=== PATIENT | male | born 1980 | race Two or more races ===

== ENCOUNTER 2020-10-05 | Outpatient (REF) | payer OTHER, SELFPAY | END 2020-10-05 00:01 | disposition home or self-care (01) | LOC: HO.LNP | PROVIDERS: Visit Provider Physician Assistant | DX: Z13.89 Encounter for screening for other disorder (principal) ==

== ENCOUNTER 2020-10-06 | Outpatient (REF) | payer OTHER, SELFPAY ==
[2020-10-07 09:57] LABS: C. trachomatis RNA TMA NOT DETECTED (NOT DETECTED); N. gonorrhoeae RNA TMA NOT DETECTED (NOT DETECTED)
== END 2020-10-06 00:01 | disposition home or self-care (01) ==
LOC: HO.LNP
PROVIDERS: Visit Provider Physician Assistant
DX: A59.9 Trichomoniasis, unspecified (principal); Z11.8 Encounter for screening for other infectious and parasitic diseases; Z11.3 Encounter for screening for infections with a predominantly sexual mode of transmission
CPT/HCPCS: 87491; 87591

== ENCOUNTER 2021-02-03 14:43 | Outpatient (REF) | payer OTHER, SELFPAY ==
[2021-02-03 16:50] LABS: Alanine Aminotransferase 31 U/L (0-40); Albumin Level 4.8 g/dL (3.5-5.0); Alkaline Phosphatase 77 U/L (39-117); Anion Gap 14 (12-20); Aspartate Amino Transferase 31 U/L (5-37); Bilirubin Total 0.6 mg/dL (0.0-1.0); Blood Urea Nitrogen 14 mg/dL (9-16); Carbon Dioxide 26 mmol/L (22-29); Chloride 105 mmol/L (96-108); Cholesterol 238 mg/dL; Estimated Glomerular Filt Rate > 60; Glucose Fasting 81 mg/dL (60-99); HDL Cholesterol 46 mg/dL; LDL Cholesterol Calculated 144 mg/dl; Potassium 4.3 mmol/L (3.3-5.1); Sodium 141 mmol/L (135-145); Total Protein 8.7 g/dL (6.5-8.0); Triglycerides 242 mg/dL
[2021-02-03 17:10] LABS: TSH reflex Free T4 0.95 uIU/mL (0.32-4.0)
[2021-02-04 06:42] LABS: CT PCR NOT DETECTED (Not Detect.); NG PCR NOT DETECTED (Not Detect.)
[2021-02-07 17:02] LABS: Testosterone, Total 503 ng/dL (250-1100)
== END 2021-02-03 14:44 | disposition home or self-care (01) ==
LOC: HO.HMGCLDS 14:43
PROVIDERS: Physician Assistant; PCP Nurse Practitioner Family; Visit Provider Nurse Practitioner Family
DX: Z00.00 Encounter for general adult medical examination without abnormal findings (principal); N52.9 Male erectile dysfunction, unspecified; I10 Essential (primary) hypertension; A59.9 Trichomoniasis, unspecified; Z20.2 Contact with and (suspected) exposure to infections with a predominantly sexual mode of transmission
CPT/HCPCS: 36415; 80053; 80061; 84403; 84443; 87491; 87591

== ENCOUNTER 2022-10-03 08:25 | Outpatient (REF) | payer OTHER, SELFPAY ==
[2022-10-03 11:57] LABS: Appearance Urine Clear; Color Urine Yellow; Glucose Urine UA Negative (Negative); Leukocyte Esterase Urine Negative (Negative); Nitrite Urine Negative (Negative); PH 5.5 (5.0-9.0); Specific Gravity - Urine >= 1.030 (1.005-1.025); Urine Blood Negative (Negative); Urine Ketones Negative (Negative); Urine Protein Trace mg/dL (Neg-Trace)
[2022-10-03 11:58] LABS: MANUAL DIFF FLAG NO
[2022-10-03 12:15] LABS: Basophils Percent Auto 0.2 % (0-2); Eosinophils Absolute Auto 0.1 X10*3/uL (0.0-0.4); Eosinophils Percent Auto 1.4 % (0-4); Hematocrit 41.5 % (42.0-52.0); Hemoglobin 14.2 g/dl (14.0-18.0); Imm Gran Abs Auto 0.01 X10*3/uL (0.00-0.03); Imm Gran Pct Auto 0.2 % (0.0-0.4); Lymphocytes Absolute Auto 1.7 X10*3/uL (1.2-4.9); Mean Corpuscular HGB Conc 34.2 g/dl (31.0-36.0); Mean Corpuscular Hemoglobin 31.7 pg (27.0-33.0); Mean Corpuscular Volume 92.6 fL (80.0-98.0); Mean Platelet Volume 9.9 fL (9.4-12.4); Monocytes Absolute Auto 0.4 X10*3/uL (0.1-1.2); Monocytes Percent Auto 8.9 % (2-11); Neutrophils Absolute Auto 2.1 x10*3/uL (2.0-8.3); Neutrophils Percent Auto 49.3 % (45-73); Platelet Count 347 X10*3/uL (160-400); Red Blood Count 4.48 X10*6/uL (4.60-5.80); White Blood Count 4.3 X10*3/uL (4.8-10.8)
[2022-10-03 12:37] LABS: Alanine Aminotransferase 13 U/L (0-40); Albumin Level 4.4 g/dL (3.5-5.0); Alkaline Phosphatase 78 U/L (39-117); Anion Gap 14 (12-20); Aspartate Amino Transferase 20 U/L (5-37); Bilirubin Total 0.3 mg/dL (0.0-1.0); Blood Urea Nitrogen 12 mg/dL (9-16); Calcium 9.7 mg/dL (8.4-10.2); Carbon Dioxide 24 mmol/L (22-29); Chloride 106 mmol/L (96-108); Cholesterol 215 mg/dL; Estimated Glomerular Filt Rate > 60; Glucose Fasting 102 mg/dL (60-99); HDL Cholesterol 33 mg/dL; LDL Cholesterol Calculated 131 mg/dl; Potassium 4.2 mmol/L (3.3-5.1); Sodium 140 mmol/L (135-145); Total Protein 8.2 g/dL (6.5-8.0); Triglycerides 255 mg/dL
[2022-10-03 12:59] LABS: TSH reflex Free T4 2.32 uIU/mL (0.32-4.0)
== END 2022-10-03 08:26 | disposition home or self-care (01) ==
LOC: HO.HMGCLDS 08:25
PROVIDERS: Visit Provider Nurse Practitioner Family
DX: Z00.00 Encounter for general adult medical examination without abnormal findings (principal)
CPT/HCPCS: 36415; 80053; 80061; 81003; 84443; 85025

== ENCOUNTER 2023-03-03 13:02 | Outpatient (REF) | payer OTHER, SELFPAY ==
[2023-03-03 14:33] LABS: Alanine Aminotransferase 20 U/L (0-40); Albumin Level 4.3 g/dL (3.5-5.0); Alkaline Phosphatase 63 U/L (39-117); Anion Gap 13 (12-20); Aspartate Amino Transferase 25 U/L (5-37); Bilirubin Total 0.9 mg/dL (0.0-1.0); Blood Urea Nitrogen 12 mg/dL (9-16); Calcium 9.8 mg/dL (8.4-10.2); Carbon Dioxide 22 mmol/L (22-29); Chloride 106 mmol/L (96-108); Cholesterol 191 mg/dL; Estimated Glomerular Filt Rate > 60; Glucose Fasting 100 mg/dL (60-99); HDL Cholesterol 45 mg/dL; LDL Cholesterol Calculated 119 mg/dl; Potassium 3.9 mmol/L (3.3-5.1); Sodium 137 mmol/L (135-145); Total Protein 8.1 g/dL (6.5-8.0); Triglycerides 135 mg/dL
== END 2023-03-03 13:03 | disposition home or self-care (01) ==
LOC: HO.HMGCLDS 13:02
PROVIDERS: PCP Nurse Practitioner Family; Visit Provider Nurse Practitioner Family
DX: E78.5 Hyperlipidemia, unspecified (principal)
CPT/HCPCS: 36415; 80053; 80061

== ENCOUNTER 2023-03-13 08:18 | Outpatient (REF) | payer OTHER, SELFPAY ==
[2023-03-19 16:13] LABS: Testosterone, Free 69.6 pg/mL (35.0-155.0); Testosterone, Total 368 ng/dL (250-1100)
== END 2023-03-13 08:19 | disposition home or self-care (01) ==
LOC: HO.HMGCLDS 08:18
PROVIDERS: PCP Nurse Practitioner Family; Visit Provider Nurse Practitioner Family
DX: N52.9 Male erectile dysfunction, unspecified (principal); R53.83 Other fatigue
CPT/HCPCS: 36415; 80053; 82607; 82728; 82746; 83540; 84402; 84403; 84443; 85025

== ENCOUNTER 2023-09-21 15:59 | Outpatient (AMB) | payer OTHER, SELFPAY ==
[2023-09-21 16:04] VITALS: BP 122/76; PULSE 76; O2SAT 98; BMI 31.8
--- NOTE | 2023-09-21 16:04 | MHC.PC.OV ---
Vital Signs 09/21/23 16:04 Height 5 ft 7 in Weight 203 lb BMI 31.8 BP 122/76 Blood Pressure Location Lt brachial Position Sitting Pulse 76 Pulse Source Pulse Oximeter Pulse Oximetry (%) 98 Oxygen Delivery Method Room Air Intake Visit Reasons: PE Intake Note: pt is here for physical exam Sweatband Shaper Required: No Accompanied by: Self / Same As Patient Allergies No Known Allergies Allergy (Verified 09/21/23 16:04) Medication List - Last Reconciled 09/21/23 by KIM Gordon alcohol swabs 1 pad tid topically; FreeStyle Lancets (lancets) TID testing NS FreeStyle Lite Meter (blood-glucose meter) TID testing NS FreeStyle Lite Strips (blood sugar diagnostic) TID testing NS lisinopril 10 mg PO DAILY tadalafil (Cialis) 20 mg PO DAILY PRN Tobacco use date assessed: 09/21/23 Dental Screening Dental Screen Date: 09/21/23 Did you have a dental visit in the last 12 months?: Yes Did you have a dental problem in the last 6 months where you did not have access to dental care?: No Was dental information given to patient?: Patient has dentist HPI PE HPI Details Pt is here for a PE. Will order labs. Pt is a diabetic, on an MEREDITH. A1C in office today is 5.7. Due for microalbumin, will order. Denies polyuria, polydipsia, and neuropathy. Pt denies any signs and symptoms of hypoglycemia and does know how to correct it. Pt has not been checking his blood sugar. Pt reports that he stopped his rosuvastatin because his cholesterol improved. Explained to pt that he should be on a statin due to diabetes, he is agreeable to this. Will start atorvastatin 10mg. Eye exam is up to date. Pt c/o erectile dysfunction. Last testosterone was WNL. ? relation to stress. Will refer to urology. sildenafil and cialis did not help. Pt does not want any vaccines right now. [facility] Medical History Hypertension Family History Father Hypertension Mother Hypertension Diabetes Cirrhosis Social History Housing: Apartment Alcohol intake: current Alcohol intake frequency: does not drink Patient Tobacco Use Status: Former Tobacco user e-Cigarette/Vaping Use: Never Used service: No Current occupational status: employed Cognitive needs: No Hearing needs: No Vision needs: Yes Questionnaire PHQ-9 Over the last 2 weeks, how often have you been bothered by any of the following problems? 1. Little interest or pleasure in doing things: several days 2. Feeling down, depressed, or hopeless: several days 3. Trouble falling or staying asleep, or sleeping too much: more than half the days 4. Feeling tired or having little energy: nearly every day 5. Poor appetite or overeating: not at all 6. Feeling bad about yourself - or that you are a failure or have let yourself or your family down: not at all 7. Trouble concentrating on things, such as reading the newspaper or watching television: several days 8. Moving or speaking so slowly that other people could have noticed. Or the opposite - being so fidgety or restless that you have been moving around a lot more than usual: not at all 9. Thoughts that you would be better off or of hurting yourself in some way: not at all Total score: 8 Depression Screening Interpretation: Negative Depression Screening Done: Yes 18407 - PHQ-9 Billing: Yes Source: Developed by Drs. Alex Thacker, Tammy Heath, Scott Peng and colleagues, with an educational trenton from [employer]. Thrive Questionnaire Date Thrive assessed: 09/21/23 I am a: Patient What is your living situation today?: I have a steady place to live Within the past 12 months, did the food you bought not last and you didn't have the money to get more?: Never true Within the past 12 months, did you worry whether your food would run out before you got money to buy more?: Never true Do you have trouble paying for medicines?: No Do you have trouble getting transportation to medical appointments?: No Do you have trouble paying your heating and electricity bill?: No Do you have trouble taking care of your child, family member or friend?: No Do you have trouble with day-to-day activities such as bathing, preparing meals, shopping, managing finances, etc.?: No Are you currently unemployed and looking for a job?: No Are you interested in more education?: No Please select the resources that you would like help with: None Currently or been in a relationship where the following occur: no concerns reported YUVAL-7 AMB Questionnaire YUVAL-7 Date YUVAL - 7 assessed: 09/21/23 Feeling nervous, anxious, or on edge: 2 = More than half the days Not being able to stop or control worryin = Not at all Worrying too much about different things: 1 = Several days Trouble relaxin = Several days Being so restless that it is hard to sit still: 2 = More than half the days Becoming easily annoyed or irritable: 2 = More than half the days Feeling afraid as if something awful might happen: 1 = Several days Total YUVAL-7 score (0-4 normal; 5-9 mild; 10-14 moderate; 15-21 severe): 9 Source: Developed by Drs. Alex Thacker, Tammy Heath, Scott Peng and colleagues, with an educational trenton from [employer]. YUVAL-7 Assessment Billing YUVAL-7 Assessment Tool: YUVAL-7 Assessment 46374 Review of Systems Const Denies chills and Denies fever(s) Eyes Denies blurry vision ENT Denies vertigo, Denies dizziness and Denies sore throat Card Denies chest pain at rest, Denies chest pain with activity, Denies diaphoresis, Denies dyspnea and Denies dyspnea on exertion Resp Denies cough, Denies dyspnea, Denies dyspnea on exertion and Denies wheezing GI Denies abdominal pain, Denies melena, Denies hematochezia, Denies constipation, Denies diarrhea and Denies loose stools Denies hematuria Musc Denies numbness and Denies tingling Skin/Breast Denies lesions Neuro Denies vertigo, Denies dizziness, Denies numbness and Denies tingling Psych Denies anxiety, Denies depression, Denies homicidal ideation, Denies suicidal ideation and Denies other (substance abuse) Aller/Immun Denies wheezing Physical exam (Primary Care) Vital Signs: Last Vital Signs Pulse 76 09/21/23 16:04 BP 122/76 09/21/23 16:04 Pulse Ox 98 09/21/23 16:04 Oxygen Delivery Method Room Air 09/21/23 16:04 BMI result Body Mass Index 31.8 Tobacco/Smoking Status: Tobacco use Status Tobacco use date assessed 09/21/23 09/21/23 16:05 Patient Tobacco Use Status Former Tobacco user 09/21/23 16:05 e-Cigarette/Vaping Use Never Used 09/21/23 16:05 PHQ-9: PHQ-9 Score PHQ-9: Total score 8 09/21/23 16:23 Depression Screening Interpretation: Negative Thrive Assessment: Date of Thrive Assessment Date Thrive assessed 09/21/23 09/21/23 16:23 Currently or been in a relationship where the following occur: no concerns reported Const General: cooperative Nutritional Appearance: obese Orientation/consciousness: patient oriented x3 HENMT Head: Yes normal to inspection, Yes normocephalic and Yes atraumatic Ears: TM's normal bilaterally Eyes General: appearance normal, both eyes and all related structures Alignment and Position: alignment normal and position normal Neck Neck: Yes normal visual inspection and Yes no lymphadenopathy Thyroid: Thyroid normal Resp Effort & Inspection: normal respiratory effort Auscultation: clear to auscultation bilaterally Cardio Rate: regular rate Rhythm: regular rhythm Heart sounds: S1 normal heart sound present, S2 normal heart sound present and no murmurs GI Palpation (GI): Soft to palpation and nontender Auscultation: normal bowel sounds Male General Exam: Yes normal external exam Penis: normal penis Scrotum: scrotum normal, testes descended bilaterally and no inguinal hernias Testes: no testicular mass Skin Rashes: no rashes Neuro General: patient oriented x3, moves all extremities, no focal motor deficits and deep tendon reflexes 2+ bilaterally Romberg Test: Negative Extrem Other: bilat feet: + sensation with use of monofilament Psych Appearance: grossly normal Mental Status: mental status grossly normal Speech and movement: Normal speech and movement present Affect: normal affect Attitude: cooperative Thought process: Normal thought process present Thought content: Normal thought content present Insight: Good insight present (Psych) Judgement: Good judgement present (Psych) Results AMB Hemoglobin A1c AMB Hemoglobin A1c 5.7 % Last Edit by Ayad Mitchell CMA on 09/21/23 16:36 Assessment and Plan Assessment & Plan (1) Physical exam: Code(s): Z00.00 - Encounter for general adult medical examination without abnormal findings Plan: Labs ordered (2) Erectile dysfunction: Code(s): N52.9 - Male erectile dysfunction, unspecified Plan: Referred to urology Plan The patient agreed to the use of a manager of medical for this encounter. Scribed for KIM Ponce by Noreen Canales manager of medical, on 09/21/2023 at 16:25 EST. Orders: Orders Comprehensive [place]. Panel Fast Today Z00.00 - Encounter for general adult medical examination without abnormal findings UA CC w/rflx Micro + Cult Today Z00.00 - Encounter for general adult medical examination without abnormal findings Complete Blood Count Auto Diff Today Z00.00 - Encounter for general adult medical examination without abnormal findings TSH reflex Free T4 Today Z00.00 - Encounter for general adult medical examination without abnormal findings Lipid Panel Today Z00.00 - Encounter for general adult medical examination without abnormal findings AMB Hemoglobin A1c Today Z13.9 - Encounter for screening, unspecified Referrals Urology Referral N52.9 - Male erectile dysfunction, unspecified Medications: New atorvastatin 10 mg PO BEDTIME 90 tabs 2RF Refilled lisinopril 10 mg PO DAILY 90 tabs 1RF Coding Level of Care Code Est Pt Prev Care 40-64y(73979) Diagnoses Physical exam Z00.00 Erectile dysfunction N52.9 Additional Codes YUVAL-7 Assessment Billing - YUVAL-7 Assessment Tool: YUVAL-7 Assessment 58078 ([id number])
== END 2023-09-21 16:46 | disposition home or self-care (01) ==
PROVIDERS: PCP Nurse Practitioner Family; Visit Provider Nurse Practitioner Family
DX: Z00.00 Encounter for general adult medical examination without abnormal findings (principal); N52.9 Male erectile dysfunction, unspecified; E11.9 Type 2 diabetes mellitus without complications
CPT/HCPCS: 83036; 99396

== ENCOUNTER 2023-12-13 07:15 | Outpatient (REF) | payer OTHER, SELFPAY ==
[2023-12-13 10:32] LABS: Appearance Urine Clear; Color Urine Yellow; Glucose Urine UA Negative (Negative); Leukocyte Esterase Urine Negative (Negative); Nitrite Urine Negative (Negative); PH 5.5 (5.0-9.0); Specific Gravity - Urine 1.025 (1.005-1.025); Urine Blood Negative (Negative); Urine Ketones Negative (Negative); Urine Protein Negative (Neg-Trace)
[2023-12-13 10:37] LABS: MANUAL DIFF FLAG NO
[2023-12-13 10:51] LABS: Basophils Percent Auto 0.5 % (0-2); Eosinophils Absolute Auto 0.1 X10*3/uL (0.0-0.4); Eosinophils Percent Auto 1.4 % (0-4); Hematocrit 46.1 % (42.0-52.0); Hemoglobin 15.9 g/dl (14.0-18.0); Imm Gran Abs Auto 0.01 X10*3/uL (0.00-0.03); Imm Gran Pct Auto 0.2 % (0.0-0.4); Lymphocytes Absolute Auto 1.9 X10*3/uL (1.2-4.9); Lymphocytes Percent Auto 45.6 % (20-40); Mean Corpuscular HGB Conc 34.5 g/dl (31.0-36.0); Mean Corpuscular Hemoglobin 31.3 pg (27.0-33.0); Mean Corpuscular Volume 90.7 fL (80.0-98.0); Monocytes Absolute Auto 0.4 X10*3/uL (0.1-1.2); Monocytes Percent Auto 8.7 % (2-11); Neutrophils Absolute Auto 1.9 x10*3/uL (2.0-8.3); Neutrophils Percent Auto 43.6 % (45-73); Platelet Count 283 X10*3/uL (160-400); Red Blood Count 5.08 X10*6/uL (4.60-5.80); Red Cell Distribution Width 12.9 % (11.0-16.0); White Blood Count 4.3 X10*3/uL (4.8-10.8)
[2023-12-13 11:16] LABS: Alanine Aminotransferase 22 U/L (0-40); Albumin Level 4.4 g/dL (3.5-5.0); Alkaline Phosphatase 60 U/L (39-117); Anion Gap 12 (12-20); Aspartate Amino Transferase 25 U/L (5-37); Bilirubin Total 0.4 mg/dL (0.0-1.0); Blood Urea Nitrogen 18 mg/dL (9-16); Calcium 9.2 mg/dL (8.4-10.2); Carbon Dioxide 26 mmol/L (22-29); Chloride 104 mmol/L (96-108); Cholesterol 222 mg/dL (<200); Estimated Glomerular Filt Rate > 60; Glucose Fasting 99 mg/dL (60-99); HDL Cholesterol 36 mg/dL (>40); LDL Cholesterol Calculated 119 mg/dL (<100); Potassium 4.1 mmol/L (3.3-5.1); Sodium 138 mmol/L (135-145); TSH reflex Free T4 0.99 uIU/mL (0.32-4.0); Total Protein 8.1 g/dL (6.5-8.0); Triglycerides 336 mg/dL (<150)
== END 2023-12-13 07:16 | disposition home or self-care (01) ==
LOC: HO.HMGCLDS 07:15
PROVIDERS: PCP Nurse Practitioner Family; Visit Provider Nurse Practitioner Family
DX: Z00.00 Encounter for general adult medical examination without abnormal findings (principal); Z13.6 Encounter for screening for cardiovascular disorders
CPT/HCPCS: 36415; 80053; 80061; 81003; 84443; 85025

== ENCOUNTER 2024-01-12 14:46 | Outpatient (AMB) | payer OTHER, SELFPAY ==
--- NOTE | 2024-01-12 07:32 | A.OFFVIS_ITS ---
Intake Visit Reasons: Erectile dysfunction Intake Note: NEW Patient presents today to established treatment for ED: Meds- Tadalafil Allergies to Antibiotic- No Known Allergies Blood Thinner- None Allergies No Known Allergies Allergy (Verified 09/21/23 16:04) Medication List - Last Reconciled 01/12/24 by Allen Naranjo MD alcohol swabs 1 pad tid topically; atorvastatin 10 mg PO BEDTIME FreeStyle Lancets (lancets) TID testing NS FreeStyle Lite Meter (blood-glucose meter) TID testing NS FreeStyle Lite Strips (blood sugar diagnostic) TID testing NS lisinopril 10 mg PO DAILY tadalafil (Cialis) 20 mg PO DAILY PRN tadalafil (Cialis) 5 mg PO DAILY HPI Comments Details: Obie is a 42-year-old male, in a monogamous relationship. He has fathered children with his . He is here for evaluation due to erectile function. He states that he has concerns in regards to maintaining an erection and decrease in sex drive. He has had lab work for testosterone levels in review of his chart total testosterone 02/03/2021 is 503 within normal range. Testosterone levels 03/13/2023--total testosterone 368 and free testosterone 69.6 on the lower end of the normal range. The 5 question international index erectile function score is 10. He has been prescribed Cialis 20 mg on demand with less than satisfactory results. I have discussed a trial of daily Cialis 5 mg daily prescription sent to [facility] pharmacy. We will repeat testosterone and other hormone levels. Follow-up in 4 months. 01/12/2024--plan Cialis 5 mg daily, testosterone, FSH, LH, prolactin, fasting glucose levels, CBC. [facility] Medical History Hypertension Family History Father Hypertension Mother Hypertension Diabetes Cirrhosis Social History Housing: Apartment Alcohol intake: current Alcohol intake frequency: does not drink Patient Tobacco Use Status: Former Tobacco user e-Cigarette/Vaping Use: Never Used service: No Current occupational status: employed Cognitive needs: No Hearing needs: No Vision needs: Yes Review of Systems Const All systems reviewed & are unremarkable except as noted in HPI and below Reports no additional complaints Eyes Reports no additional complaints ENT Reports no additional complaints Card Reports no additional complaints Resp Reports no additional complaints GI Reports no additional complaints Reports as per HPI Musc Reports no additional complaints Skin/Breast Reports system reviewed and no additional complaints, except as documented Neuro Reports no additional complaints Psych Reports no additional complaints Endo Reports no additional complaints Reji/Lymph Reports no additional complaints Aller/Immun Reports no additional complaints Physical Exam Const General: healthy appearing, no acute distress and well developed Orientation/consciousness: patient oriented x3 HEENT Head: Yes normocephalic and Yes atraumatic Eyes Conjunctivae: conjunctivae normal Neck Neck: Yes normal visual inspection Chest Chest palpation & inspection: normal inspection of the chest Resp Effort & Inspection: normal respiratory effort Cardio Rate: regular rate GI Inspection: Yes normal to inspection Skin General skin exam: no rashes or lesions noted Neuro General: patient oriented x3 Extrem General: No pedal edema Psych Appearance: grossly normal Affect: normal affect Results AMB Urinalysis, Automated UA Leukoctes 0 Wood/uL Last Edit by FRAN Martines on 01/12/24 15:40 UA Nitrite Negative Last Edit by FRAN Martines on 01/12/24 15:40 UA Urobilinogen 0.2 mg/dL Last Edit by FRAN Martines on 01/12/24 15:4 0 UA Protein 0 mg/dL Last Edit by FRAN Martines on 01/12/24 15:40 UA pH 5.5 Last Edit by FRAN Martines on 01/12/24 15:40 UA Blood 10 Amadeo/uL Last Edit by FRAN Martines on 01/12/24 15:40 UA Specific [place] 1.020 Last Edit by FRAN Martines on 01/12/24 15: 40 UA Ketone Negative Last Edit by FRAN Martines on 01/12/24 15:40 UA Bilirubin 0 mg/dL Last Edit by FRAN Martines on 01/12/24 15:40 UA Glucose 1000 mg/dL Last Edit by FRAN Martines on 01/12/24 15:40 Results Reviewed Results Reviewed: Laboratory Last Values Urine pH (Auto) 5.5 01/12/24 15:36 Specific [place] (Auto) 1.020 01/12/24 15:36 Urine Protein (Auto) 0 mg/dL 01/12/24 15:36 Glucose (UA)(Auto) 1000 mg/dL 01/12/24 15:36 Urine Ketones (Auto) Negative 01/12/24 15:36 Urine Blood (Auto) 10 Amadeo/uL 01/12/24 15:36 Urine Nitrite (Auto) Negative 01/12/24 15:36 Urine Bilirubin (Auto) 0 mg/dL 01/12/24 15:36 Urine Urobilinogen (Auto) 0.2 mg/dL 01/12/24 15:36 Leukocyte Esterase (Auto) 0 Wood/uL 01/12/24 15:36 Assessment & Plan Assessment & Plan (1) Erectile dysfunction: Code(s): N52.9 - Male erectile dysfunction, unspecified Category: Medical (2) Low testosterone: Code(s): R79.89 - Other specified abnormal findings of blood chemistry Category: Medical Plan plan Cialis 5 mg daily, testosterone, FSH, LH, prolactin, fasting glucose levels, CBC. Orders: Orders AMB Urinalysis Automated Today Z13.9 - Encounter for screening, unspecified Lutenizing Hormone Today N52.9 - Male erectile dysfunction, unspecified Follicle Stimulating Hormone Today N52.9 - Male erectile dysfunction, unspecified Testosterone, Free/Total Today N52.9 - Male erectile dysfunction, unspecified Complete Blood Count no Diff Today N52.9 - Male erectile dysfunction, unspecified Glucose Fasting Today N52.9 - Male erectile dysfunction, unspecified Prolactin Today N52.9 - Male erectile dysfunction, unspecified Medications: New tadalafil (Cialis) [id number] [facility] [id number] Member [id number] 5 mg PO DAILY 30 tabs 4RF Patient Instructions: The patient had an opportunity to ask questions regarding treatment plan. The patient expressed understanding and agreement with the above treatment plan. The patient is aware they should contact our office by phone for worsening of their current condition or the appearance of new symptoms. Compliance is encouraged with any medications and followup testing that is ordered. It is a privilege to be allowed the opportunity to participate in the urologic care of your patient. If you have any questions or concerns regarding treatment for the above conditions please do not hesitate to contact me. The office telephone contact is [phone]. This note is constructed in part using voice recognition software. While every effort has been made to ensure accuracy gravure press set up operator errors may have been included. Yours sincerely, Allen Naranjo MD Coding Level of Care Code New Pt Level 4 (36158) Diagnoses Erectile dysfunction N52.9 Low testosterone R79.89
== END 2024-01-12 16:05 | disposition home or self-care (01) ==
PROVIDERS: PCP Nurse Practitioner Family; Visit Provider Urology
DX: N52.9 Male erectile dysfunction, unspecified (principal); R79.89 Other specified abnormal findings of blood chemistry; Z13.9 Encounter for screening, unspecified
CPT/HCPCS: 99204

== ENCOUNTER → 2024-01-12 14:46 | Outpatient (BNVA) | payer OTHER, SELFPAY | PROVIDERS: PCP Nurse Practitioner Family; Visit Provider Urology | DX: N52.9 Male erectile dysfunction, unspecified (principal); E29.1 Testicular hypofunction | CPT/HCPCS: 81003 ==

== ENCOUNTER 2024-03-25 13:55 | Outpatient (AMB) | payer OTHER, SELFPAY ==
--- NOTE | 2024-03-25 13:57 | A.OFFPC_ITS ---
Vital Signs 03/25/24 14:00 03/25/24 14:20 Height 5 ft 7 in Weight 205 lb BMI 32.1 BP 142/96 H 136/88 Blood Pressure Location Lt brachial Lt brachial Position Sitting Sitting Pulse 104 H Pulse Source Pulse Oximeter Pulse Oximetry (%) 96 Oxygen Delivery Method Room Air Intake Visit Reasons: 6 Month F/U Labs/Diabetes Intake Note: Pt is here today for his 6 month follow up on diabetes and labs Allergies No Known Allergies Allergy (Verified 03/25/24 14:01) Medication List - Last Reconciled 03/25/24 by KIM Gordon atorvastatin 10 mg PO BEDTIME lisinopril 20 mg PO DAILY tadalafil (Cialis) 5 mg PO DAILY Tobacco use date assessed: 03/25/24 Dental Screening Dental Screen Date: 03/25/24 Did you have a dental visit in the last 12 months?: No Did you have a dental problem in the last 6 months where you did not have access to dental care?: No Was dental information given to patient?: Patient has dentist HPI 6 Month F/U Labs/Diabetes HPI Details Pt is a diabetic, on an MEREDITH and a statin. A1C in office today is 5.6. Due for microalbumin, will order. Denies polyuria, polydipsia, and neuropathy. Pt denies any signs and symptoms of hypoglycemia and does know how to correct it. Pt will schedule his own eye exam. HTN: Blood pressure is elevated today. Will increase lisinopril from 10mg to 20mg. [facility] Medical History Hypertension Family History Father Hypertension Mother Hypertension Diabetes Cirrhosis Social History Housing: Apartment Alcohol intake: current Alcohol intake frequency: does not drink Patient Tobacco Use Status: Former Tobacco user e-Cigarette/Vaping Use: Never Used service: No Current occupational status: employed Cognitive needs: No Hearing needs: No Vision needs: Yes Questionnaire PHQ-9 Over the last 2 weeks, how often have you been bothered by any of the following problems? 1. Little interest or pleasure in doing things: not at all 2. Feeling down, depressed, or hopeless: not at all 3. Trouble falling or staying asleep, or sleeping too much: several days 4. Feeling tired or having little energy: several days 5. Poor appetite or overeating: several days 6. Feeling bad about yourself - or that you are a failure or have let yourself or your family down: not at all 7. Trouble concentrating on things, such as reading the newspaper or watching television: not at all 8. Moving or speaking so slowly that other people could have noticed. Or the opposite - being so fidgety or restless that you have been moving around a lot more than usual: not at all 9. Thoughts that you would be better off or of hurting yourself in some way: not at all Total score: 3 Depression Screening Interpretation: Negative Depression Screening Done: Yes 51766 - PHQ-9 Billing: Yes Source: Developed by Drs. Alex Thacker, Tammy Heath, Scott Pneg and colleagues, with an educational trenton from [employer]. Thrive Questionnaire Date Thrive assessed: 03/25/24 I am a: Patient What is your living situation today?: I have a steady place to live Within the past 12 months, did the food you bought not last and you didn't have the money to get more?: Never true Within the past 12 months, did you worry whether your food would run out before you got money to buy more?: Never true Do you have trouble paying for medicines?: No Do you have trouble getting transportation to medical appointments?: No Do you have trouble paying your heating and electricity bill?: No Do you have trouble taking care of your child, family member or friend?: No Do you have trouble with day-to-day activities such as bathing, preparing meals, shopping, managing finances, etc.?: No Are you currently unemployed and looking for a job?: No Are you interested in more education?: No Please select the resources that you would like help with: Housing/Residential Currently or been in a relationship where the following occur: No concerns reported THRIVE Score: 0 AUDIT C Alcohol Use Questionnaire (AUDIT-C) 1. How often do you have a drink containing alcohol?: Never 3. How often do you have six or more drinks on one occasion?: Never Total Score: 0 Score Reviewed/Action Taken: Yes YUVAL-7 AMB Questionnaire YUVAL-7 Date YUVAL - 7 assessed: 03/25/24 Feeling nervous, anxious, or on edge: 0 = Not at all Not being able to stop or control worryin = Not at all Worrying too much about different things: 0 = Not at all Trouble relaxin = Not at all Being so restless that it is hard to sit still: 0 = Not at all Becoming easily annoyed or irritable: 1 = Several days Feeling afraid as if something awful might happen: 0 = Not at all Total YUVAL-7 score (0-4 normal; 5-9 mild; 10-14 moderate; 15-21 severe): 1 Source: Developed by Drs. Alex Thacker, Tammy Heath, Scott Peng and colleagues, with an educational trenton from [employer]. YUVAL-7 Assessment Billing YUVAL-7 Assessment Tool: YUVAL-7 Assessment 42893 Review of Systems Const Reports as per HPI Physical exam (Primary Care) Vital Signs: Last Vital Signs Pulse 104 H 03/25/24 14:00 BP 136/88 03/25/24 14:20 Pulse Ox 96 03/25/24 14:00 Oxygen Delivery Method Room Air 03/25/24 14:00 BMI result Body Mass Index 32.1 Tobacco/Smoking Status: Tobacco use Status Tobacco use date assessed 03/25/24 03/25/24 14:01 Patient Tobacco Use Status Former Tobacco user 03/25/24 13:58 e-Cigarette/Vaping Use Never Used 03/25/24 13:58 PHQ-9: PHQ-9 Score PHQ-9: Total score 3 03/25/24 14:13 Depression Screening Interpretation: Negative Thrive Assessment: Date of Thrive Assessment Date Thrive assessed 03/25/24 03/25/24 14:01 Currently or been in a relationship where the following occur: No concerns reported Const General: cooperative Orientation/consciousness: patient oriented x3 Resp Effort & Inspection: normal respiratory effort Auscultation: clear to auscultation bilaterally Cardio Rate: regular rate Rhythm: regular rhythm Heart sounds: S1 normal heart sound present and S2 normal heart sound present Neuro General: patient oriented x3 Extrem Other: right foot + sensation with use of monofilament, left foot decreased sensation, feet intact Psych Appearance: grossly normal Mental Status: mental status grossly normal Speech and movement: Normal speech and movement present Affect: normal affect Attitude: cooperative Thought process: Normal thought process present Thought content: Normal thought content present Insight: Good insight present (Psych) Judgement: Good judgement present (Psych) Assessment and Plan Assessment & Plan (1) Diabetes: Code(s): E11.9 - Type 2 diabetes mellitus without complications Plan: Labs ordered (2) Hypertension: Code(s): I10 - Essential (primary) hypertension Plan: Increasing lisinopril from 10mg to 20mg Plan The patient agreed to the use of a medical assistant supervisor for this encounter. Scribed for KIM Ponce by Noreen Canales medical assistant supervisor, on 03/25/2024 at 14:15 EST. Orders: Orders Complete Blood Count Auto Diff Today E11.9 - Type 2 diabetes mellitus without complications UA CC w/rflx Micro + Cult Today E11.9 - Type 2 diabetes mellitus without complications Lipid Panel Today E11.9 - Type 2 diabetes mellitus without complications Comprehensive [place]. Panel Fast Today E11.9 - Type 2 diabetes mellitus without complications TSH reflex Free T4 Today E11.9 - Type 2 diabetes mellitus without complications Microalbumin, Random (w Creat) Today E11.9 - Type 2 diabetes mellitus without complications Medications: Changed From lisinopril 10 mg PO DAILY 90 tabs 1RF To lisinopril 20 mg PO DAILY 90 tabs 1RF Coding Level of Care Code Est Pt Level 3 (12702) Diagnoses Diabetes E11.9 Hypertension I10 Additional Codes YUVAL-7 Assessment Billing - YUVAL-7 Assessment Tool: YUVAL-7 Assessment 21904 ([id number])
[2024-03-25 14:00] VITALS: BP 142/96; PULSE 104; O2SAT 96; BMI 32.1
[2024-03-25 14:20] VITALS: BP 136/88
== END 2024-03-25 14:38 | disposition home or self-care (01) ==
PROVIDERS: PCP Nurse Practitioner Family; Visit Provider Nurse Practitioner Family
DX: E11.9 Type 2 diabetes mellitus without complications (principal); I10 Essential (primary) hypertension
CPT/HCPCS: 83036; 99213

== ENCOUNTER 2024-04-23 10:08 | Outpatient (REF) | payer OTHER, SELFPAY ==
[2024-04-23 13:38] LABS: MANUAL DIFF FLAG NO
[2024-04-23 13:41] LABS: Appearance Urine Clear; Color Urine Yellow; Glucose Urine UA Negative (Negative); Leukocyte Esterase Urine Negative (Negative); Nitrite Urine Negative (Negative); Specific Gravity - Urine 1.015 (1.005-1.025); Urine Blood Negative (Negative); Urine Ketones Negative (Negative); Urine Protein Negative (Neg-Trace)
[2024-04-23 13:48] LABS: Basophils Percent Auto 0.8 % (0-2); Eosinophils Absolute Auto 0.1 X10*3/uL (0.0-0.4); Eosinophils Percent Auto 1.6 % (0-4); Hematocrit 47.1 % (42.0-52.0); Hemoglobin 16.3 g/dl (14.0-18.0); Imm Gran Abs Auto 0.01 X10*3/uL (0.00-0.03); Imm Gran Pct Auto 0.2 % (0.0-0.4); Lymphocytes Absolute Auto 1.9 X10*3/uL (1.2-4.9); Lymphocytes Percent Auto 36.5 % (20-40); Mean Corpuscular HGB Conc 34.6 g/dl (31.0-36.0); Mean Corpuscular Hemoglobin 32.7 pg (27.0-33.0); Mean Corpuscular Volume 94.4 fL (80.0-98.0); Mean Platelet Volume 10.3 fL (9.4-12.4); Monocytes Absolute Auto 0.5 X10*3/uL (0.1-1.2); Neutrophils Absolute Auto 2.7 x10*3/uL (2.0-8.3); Neutrophils Percent Auto 51.9 % (45-73); Platelet Count 301 X10*3/uL (160-400); Red Blood Count 4.99 X10*6/uL (4.60-5.80); White Blood Count 5.1 X10*3/uL (4.8-10.8)
[2024-04-23 14:01] LABS: Alanine Aminotransferase 41 U/L (0-40); Albumin Level 4.5 g/dL (3.5-5.0); Alkaline Phosphatase 73 U/L (39-117); Anion Gap 15 (12-20); Aspartate Amino Transferase 30 U/L (5-37); Bilirubin Total 0.4 mg/dL (0.0-1.0); Blood Urea Nitrogen 10 mg/dL (9-16); Calcium 9.9 mg/dL (8.4-10.2); Carbon Dioxide 26 mmol/L (22-29); Chloride 102 mmol/L (96-108); Cholesterol 240 mg/dL (<200); Estimated Glomerular Filt Rate > 60; Glucose Fasting 105 mg/dL (60-99); HDL Cholesterol 45 mg/dL (>40); LDL Cholesterol Calculated 146 mg/dL (<100); Sodium 139 mmol/L (135-145); Total Protein 8.7 g/dL (6.5-8.0); Triglycerides 246 mg/dL (<150)
[2024-04-23 14:16] LABS: Creatinine Urine 111.12 mg/dL; Microalbum/Creatinine Ratio Ur 9.8 ug/mg cr (<30)
[2024-04-23 14:19] LABS: TSH reflex Free T4 2.15 uIU/mL (0.32-4.0)
[2024-04-24 08:59] LABS: Follicle Stimulating Hormone 2.9 mIU/mL (1.4-12.8); Lutenizing Hormone 2.9 mIU/mL (1.5-9.3); Prolactin 19.3 ng/mL (2.0-18.0)
[2024-04-27 16:33] LABS: Testosterone, Free 73.1 pg/mL (35.0-155.0); Testosterone, Total 457 ng/dL (250-1100)
== END 2024-04-23 10:09 | disposition home or self-care (01) ==
LOC: HO.HMGCLDS 10:08
PROVIDERS: PCP Nurse Practitioner Family; Referring Provider Urology; Visit Provider Nurse Practitioner Family
DX: N52.9 Male erectile dysfunction, unspecified (principal); E11.9 Type 2 diabetes mellitus without complications
CPT/HCPCS: 36415; 80053; 80061; 81003; 82043; 82570; 83001; 83002; 84146; 84402; 84403; 84443; 85025

== ENCOUNTER 2024-05-01 10:05 | Outpatient (REF) | payer OTHER, SELFPAY ==
--- NOTE | ~2024-05-01 | US_ITS ---
EXAMINATION: US ABDOMEN COMPLETE CLINICAL INFORMATION: Abnormal levels of other serum enzymes. COMPARISON: None available. TECHNIQUE: Real-time imaging of the abdominal viscera. FINDINGS: PANCREAS: The pancreas appears unremarkable, without masses or ductal dilatation, with the exception of the tail which is obscured by bowel gas. ABDOMINAL AORTA: The proximal, mid, and distal segments are normal in caliber. INFERIOR VENA CAVA: Visualized portions are normal. LIVER: The liver is normal in size. The liver contour is normal. There is diffuse increased liver parenchymal echogenicity, consistent with hepatic steatosis There is an area of focal fatty sparing seen around the vibha hepatis and gallbladder with the largest area measuring 3.2 x 1.6 x 2.5 cm. No definite suspicious solid hepatic mass seen. There is no intrahepatic biliary duct dilatation seen. GALLBLADDER: Normal. The gallbladder is physiologically distended without evidence of stones, sludge, polyps, wall thickening or pericholecystic fluid. COMMON BILE DUCT: Normal in caliber measuring 0.65 cm in diameter. RIGHT KIDNEY: Normal. No hydronephrosis. No renal calculi or focal parenchymal lesions. The kidney measures 10.9 cm in maximum dimension. LEFT KIDNEY: Normal. No hydronephrosis. No renal calculi or focal parenchymal lesions. The kidney measures 10.0 cm in maximum dimension. SPLEEN: Normal. The spleen measures 10.1 cm in maximum dimension. FREE FLUID: None. US/US abdomen complete IMPRESSION: Hepatic steatosis with areas of focal fatty sparing. Electronically signed by: Augusto Cooney MD 05/06/2024 12:51 PM EDT
== END 2024-05-01 10:06 | disposition home or self-care (01) ==
LOC: HO.HMGCX 10:05
PROVIDERS: PCP Nurse Practitioner Family; Visit Provider Nurse Practitioner Family
DX: R74.8 Abnormal levels of other serum enzymes (principal)
CPT/HCPCS: 76700

== ENCOUNTER 2024-05-13 13:51 | Outpatient (AMB) | payer OTHER, SELFPAY ==
--- NOTE | 2024-05-13 14:26 | MHC.OFFVIS ---
Intake Visit Reasons: 4m/Testo(SET) Intake Note: Patient is Present for Follow Up Testosterone Results Urology Medication: Tadalafil Antibiotic Allergies: None Blood Thinners: None Recent A1C- 5.6(03/2024) Patient has no complaints or concerns Public Opinion Survey Taker Required: No Accompanied by: Self / Same As Patient Allergies No Known Allergies Allergy (Verified 05/13/24 14:29) HPI Comments Details: 05/13/24--Obie is here in follow up for hypogonadism. He was last seen on 01/12/24--Obie is a 42-year-old male, in a monogamous relationship. He has fathered children with his . He is here for evaluation due to erectile function. He states that he has concerns in regards to maintaining an erection and decrease in sex drive. He has had lab work for testosterone levels in review of his chart total testosterone 02/03/2021 is 503 within normal range. Testosterone levels 03/13/2023--total testosterone 368 and free testosterone 69.6 on the lower end of the normal range. The 5 question international index erectile function score is 10. He has been prescribed Cialis 20 mg on demand with less than satisfactory results. I have discussed a trial of daily Cialis 5 mg daily. repeat testosterone and other hormone levels discussed, testosterone - 457ng/dL, prolactin is slightly elevated 19.3. Will refer to endocrine. [facility] Medical History Hypertension Family History Father Hypertension Mother Hypertension Diabetes Cirrhosis Social History Housing: Apartment Alcohol intake: current Alcohol intake frequency: does not drink Patient Tobacco Use Status: Former Tobacco user e-Cigarette/Vaping Use: Never Used service: No Current occupational status: employed Cognitive needs: No Hearing needs: No Vision needs: Yes Review of Systems Const All systems reviewed & are unremarkable except as noted in HPI and below Reports no additional complaints Eyes Reports no additional complaints ENT Reports no additional complaints Card Reports no additional complaints Resp Reports no additional complaints GI Reports no additional complaints Reports as per HPI Musc Reports no additional complaints Skin/Breast Reports system reviewed and no additional complaints, except as documented Neuro Reports no additional complaints Psych Reports no additional complaints Endo Reports no additional complaints Reji/Lymph Reports no additional complaints Aller/Immun Reports no additional complaints Assessment & Plan Assessment & Plan (1) Erectile dysfunction: Code(s): N52.9 - Male erectile dysfunction, unspecified Category: Medical (2) Low testosterone: Code(s): R79.89 - Other specified abnormal findings of blood chemistry Category: Medical (3) Prolactin increased: Code(s): R79.89 - Other specified abnormal findings of blood chemistry Category: Medical Plan Daily Cialis 5 mg daily. testosterone - 457ng/dL, prolactin is slightly elevated 19.3. Will refer to endocrine. testosterone refilled. Orders: Referrals Endocrinology Referral R79.89 - Other specified abnormal findings of blood chemistry Medications: New testosterone cypionate (Depo-Testosterone) 80 mg (0.4 mL) subcut QWEEK 2 multiple units 3RF 4 weeks Patient Instructions: The patient had an opportunity to ask questions regarding treatment plan. The patient expressed understanding and agreement with the above treatment plan. The patient is aware they should contact our office by phone for worsening of their current condition or the appearance of new symptoms. Compliance is encouraged with any medications and followup testing that is ordered. It is a privilege to be allowed the opportunity to participate in the urologic care of your patient. If you have any questions or concerns regarding treatment for the above conditions please do not hesitate to contact me. The office telephone contact is [phone]. This note is constructed in part using voice recognition software. While every effort has been made to ensure accuracy parking enforcement officer errors may have been included. Yours sincerely, Allen Naranjo MD Coding Level of Care Code Est Pt Level 4 (65135) Diagnoses Erectile dysfunction N52.9 Low testosterone R79.89 Prolactin increased R7.89
== END 2024-05-13 15:28 | disposition home or self-care (01) ==
PROVIDERS: PCP Nurse Practitioner Family; Visit Provider Urology
DX: N52.9 Male erectile dysfunction, unspecified (principal); R79.89 Other specified abnormal findings of blood chemistry
CPT/HCPCS: 99214

== ENCOUNTER → 2024-05-13 13:51 | Outpatient (BNVA) | payer OTHER, SELFPAY | PROVIDERS: PCP Nurse Practitioner Family; Visit Provider Urology ==

== ENCOUNTER 2024-08-21 08:39 | Outpatient (REF) | payer OTHER, SELFPAY ==
[2024-08-26 18:14] LABS: Testosterone, Free 119.4 pg/mL (35.0-155.0); Testosterone, Total 345 ng/dL (250-1100)
== END 2024-08-21 08:40 | disposition home or self-care (01) ==
LOC: HO.HMGCLDS 08:39
PROVIDERS: Urology; PCP Nurse Practitioner Family; Visit Provider Nurse Practitioner Family
DX: Z12.5 Encounter for screening for malignant neoplasm of prostate (principal); N52.9 Male erectile dysfunction, unspecified
CPT/HCPCS: 36415; 84153; 84402; 84403

== ENCOUNTER 2024-09-23 07:59 | Outpatient (AMB) | payer OTHER, SELFPAY ==
--- NOTE | 2024-09-23 07:59 | A.OFFVIS_ITS ---
Intake Visit Reasons: Follow-up Labs (set) Intake Note: Patient is present for LABS F/U Urology Medication:TADALAFIL,TESTOSTERONE Antibiotic Allergy:NONE Blood Thinner:NONE Radiator Mechanic Required: No Allergies No Known Allergies Allergy (Verified 09/23/24 07:59) Medication List - Last Reconciled 09/23/24 by Allen Naranjo MD atorvastatin 20 mg PO BEDTIME 90 days lisinopril 20 mg PO DAILY tadalafil (Cialis) 5 mg PO DAILY tadalafil (Cialis) 20 mg orally twice a week mon/; [id number] [id number] Member [id number] testosterone cypionate (Depo-Testosterone) 160 mg (0.8 mL) subcut QWEEK 4 weeks HPI Comments Details: 09/23/24--Osman is a 44-year-old male who has been placed on testosterone replacement, repeat testosterone levels remain low. The patient states he is using Cialis 5 mg daily and Cialis 20 mg every couple of weeks. He states that he still has low libido and inadequate erections. He has not been seen by endocrine as yet for elevated prolactin levels. I will increase testosterone from 80-160 mg once a week. I have instructed to continue daily 5 mg Cialis and to use Cialis 20 mg twice a week Monday and . We will repeat testosterone, and hematocrit levels in 2 months. 08/11/24--Obie is here in follow up for hypogonadism. He has been prescribed Cialis 20 mg on demand with less than satisfactory results. I have discussed a trial of daily Cialis 5 mg daily. No new labs in 04/202405/13/24--Obie is here in follow up for hypogonadism. He was last seen on 01/12/24--Obie is a 42-year-old male, in a monogamous relationship. He has fathered children with his . He is here for evaluation due to erectile function. He states that he has concerns in regards to maintaining an erection and decrease in sex drive. He has had lab work for testosterone levels in review of his chart total testosterone 02/03/2021 is 503 within normal range. Testosterone levels 03/13/2023--total testosterone 368 and free testosterone 69.6 on the lower end of the normal range. The 5 question international index erectile function score is 10. He has been prescribed Cialis 20 mg on demand with less than satisfactory results. I have discussed a trial of daily Cialis 5 mg daily. repeat testosterone and other hormone levels discussed, testosterone - 457ng/dL, prolactin is slightly elevated 19.3. Will refer to endocrine. [facility] Medical History Hypertension Family History Father Hypertension Mother Hypertension Diabetes Cirrhosis Social History Housing: Apartment Alcohol intake: current Alcohol intake frequency: does not drink Patient Tobacco Use Status: Former Tobacco user e-Cigarette/Vaping Use: Never Used service: No Current occupational status: employed Cognitive needs: No Hearing needs: No Vision needs: Yes Review of Systems Const All systems reviewed & are unremarkable except as noted in HPI and below Reports no additional complaints Eyes Reports no additional complaints ENT Reports no additional complaints Card Reports no additional complaints Resp Reports no additional complaints GI Reports no additional complaints Reports as per HPI Musc Reports no additional complaints Skin/Breast Reports system reviewed and no additional complaints, except as documented Neuro Reports no additional complaints Psych Reports no additional complaints Endo Reports no additional complaints Erji/Lymph Reports no additional complaints Aller/Immun Reports no additional complaints Telehealth Telehealth Telehealth Platform: [facility] Location of provider rendering services: practice address Location of patient: address on file Patient Identification confirmed using: Name, : Yes Telehealth method: voice only Patient verbally consented to treatment: Yes Patient verbally consented to billing insurance company: Yes Patient informed of any privacy concerns related to visit: Yes Minutes spent on Phone/Video with Pt.: 18 Assessment & Plan Assessment & Plan (1) Erectile dysfunction: Code(s): N52.9 - Male erectile dysfunction, unspecified Category: Medical (2) Low testosterone: Code(s): R79.89 - Other specified abnormal findings of blood chemistry Category: Medical (3) Prolactin increased: Code(s): R79.89 - Other specified abnormal findings of blood chemistry Category: Medical (4) Long-term current use of testosterone replacement therapy: Code(s): Z79.890 - Hormone replacement therapy Category: Medical Plan Daily Cialis 5 mg daily. prolactin is slightly elevated 19.3. endocrine referral pending. Testosterone levels remain low on replacement, testosterone increased Orders: Orders Hematocrit 6 Weeks R79.89 - Other specified abnormal findings of blood chemistry, Z79.890 - Hormone replacement therapy Testosterone, Free/Total 6 Weeks N52.9 - Male erectile dysfunction, unspecified, R79.89 - Other specified abnormal findings of blood chemistry, Z79. - Hormone replacement therapy Medications: New tadalafil (Cialis) 20 mg orally twice a week mon/thurs; [id number] [facility] [id number] Member [id number] 10 tabs 0RF Changed From testosterone cypionate (Depo-Testosterone) 80 mg (0.4 mL) subcut QWEEK 4 weeks 2 multiple units 3RF To testosterone cypionate (Depo-Testosterone) 160 mg (0.8 mL) subcut QWEEK 4 weeks 2 multiple units 3RF low testosterone Refilled tadalafil (Cialis) [id number] [facility] [id number] Member [id number] 5 mg PO DAILY 30 tabs 4RF Patient Instructions: The patient had an opportunity to ask questions regarding treatment plan. The patient expressed understanding and agreement with the above treatment plan. The patient is aware they should contact our office by phone for worsening of their current condition or the appearance of new symptoms. Compliance is encouraged with any medications and followup testing that is ordered. It is a privilege to be allowed the opportunity to participate in the urologic care of your patient. If you have any questions or concerns regarding treatment for the above conditions please do not hesitate to contact me. The office telephone contact is [phone]. This note is constructed in part using voice recognition software. While every effort has been made to ensure accuracy powertrain engineer errors may have been in cluded. Yours sincerely, Allen Naranjo MD Coding Level of Care Code Tele Est Pt Level 4 (96892) Diagnoses Erectile dysfunction N52.9 Low testosterone R79.89 Prolactin increased R79.89 Long-term current use of testosterone replacement therapy Z79.0
== END 2024-09-23 10:35 | disposition home or self-care (01) ==
LOC: HO.HUSH 07:59
PROVIDERS: PCP Nurse Practitioner Family; Visit Provider Urology
DX: N52.9 Male erectile dysfunction, unspecified (principal); R79.89 Other specified abnormal findings of blood chemistry; Z79.890 Hormone replacement therapy
CPT/HCPCS: 98016

== ENCOUNTER → 2024-09-23 07:59 | Outpatient (BNVA) | payer OTHER, SELFPAY | PROVIDERS: PCP Nurse Practitioner Family; Visit Provider Urology ==

== ENCOUNTER 2024-10-02 08:32 | Outpatient (AMB) | payer OTHER, SELFPAY ==
--- NOTE | 2024-10-02 08:35 | A.OFFVIS_ITS ---
Vital Signs 10/02/24 08:37 Height 5 ft 7 in Weight 201 lb 8.04 oz BMI 31.6 BP 112/88 Blood Pressure Location Rt brachial Position Sitting Pulse 97 Pulse Source Pulse Oximeter Intake Visit Reasons: Hypogonadism Intake Note: New patient internally referred by Urologist for Hypogonadism. Grinder Set Up Operator Gear Tool Required: No Accompanied by: Self / Same As Patient Allergies No Known Allergies Allergy (Verified 10/02/24 08:37) HPI Comments Details: 44 YO Male who is seen in consultation at the request of urologist for Hypogonadism. First diagnosed with Hypogonadism 5 mos ago Was started on Testosterone supplementation with 5 mos ago Currently using IM testosterone 160 mg Qwkly . Last dose was []. Currently not achieving spontaneous am erections, and unable to achieve erection when desired. Reports low libido worse with testosterone . Decreased facial hair and shaving frequency. Denies any change in size or shape of testicles. Denies penile discharge or scrotal tenderness. Denies any history of mumps orchitis. Had head trauma concusions in high school . Denies history of JARED with negative sleep study . with children and has daughter at age 18 who were conceived spontaneously. Sense of smell intact. Has headache but visual changes, -gynecomastia - galactorrhea. Denies orthostatic symptoms, weight loss. Denies change in size of hands or feet. Denies hair loss, +weight gain, +cold intolerance. History of DVT or PE: No No use of biotin, anabolic steroids . No use of opoids or methadone Labs: PSA CBC [facility] Medical History (Updated 09/23/24 @ 10:26 by Allen Naranjo MD) Hypertension Surgical History No pertinent past surgical history Family History Father Hypertension Mother Hypertension Diabetes Cirrhosis Social History Housing: Apartment Alcohol intake: current Alcohol intake frequency: does not drink Patient Tobacco Use Status: Former Tobacco user e-Cigarette/Vaping Use: Never Used service: No Current occupational status: employed Cognitive needs: No Hearing needs: No Vision needs: Yes Physical Exam Vital Signs: Last Vital Signs Pulse 97 10/02/24 08:37 BP 112/88 01/29/25 08:37 BMI result Body Mass Index 31.6 There is the absence of eunichoidal proportions. Neck exam reveals nl thyroid about 15 gms. Chest exam reveals absence of gynecomastia. Lungs CTA. Heart is S1 S2 Reg R/R. -M/R/G. Abdominal exam is benign. Muscle strength is 5/5 proximally. Examination of genitalia reveals nl size pthalus . Testes are of nl size and consistency. There is Ray Stage V Hair development Assessment & Plan Assessment & Plan (1) Low testosterone: Code(s): R79.89 - Other specified abnormal findings of blood chemistry Category: Medical Plan: This is a 44-year-old male with a reported history of hypogonadism followed by Urology currently on intramuscular testosterone 160 mg Q monthly. There was no documented let was a low testosterone off testosterone. Gonadotropins are low normal and prolactin was found to be elevated Plan is to have the patient hold the testosterone for 6 weeks time recheck a.m. testosterone along with prolactin fasting. Further workup will be based on the above. If prolactin is elevated, would consider getting an MRI of the pituitary gland at that point (2) Prolactin increased: Code(s): R79.89 - Other specified abnormal findings of blood chemistry Category: Medical Plan: Will recheck fasting prolactin as above Orders: Orders Testosterone, Free/Total 6 Weeks R7. - Other specified abnormal findings of blood chemistry Prolactin 6 Weeks - Other specified abnormal findings of blood chemistry Coding Level of Care Code New Pt Level 4 (19134) Diagnoses Low testosterone Prolactin increased
[2024-10-02 08:37] VITALS: BP 112/88; PULSE 97; BMI 31.6
== END 2024-10-02 09:07 | disposition home or self-care (01) ==
PROVIDERS: PCP Nurse Practitioner Family; Visit Provider Internal Medicine Endocrinology, Diabetes & Metabolism
DX: R79.89 Other specified abnormal findings of blood chemistry (principal)
CPT/HCPCS: 99204

== ENCOUNTER → 2024-10-02 08:32 | Outpatient (BNVA) | payer OTHER, SELFPAY | PROVIDERS: PCP Nurse Practitioner Family; Visit Provider Internal Medicine Endocrinology, Diabetes & Metabolism ==

== ENCOUNTER 2024-10-22 09:05 | Outpatient (AMB) | payer OTHER, SELFPAY ==
--- NOTE | 2024-10-22 09:14 | AM.OFFWIN_ITS ---
Intake Vital Signs 10/22/24 09:19 Height 5 ft 7 in Weight 208 lb BMI 32.6 BP 116/80 Blood Pressure Location Lt brachial Position Sitting Pulse 84 Pulse Source Pulse Oximeter Temp 98.2 F Temp Source Oral Pulse Oximetry (%) 98 Oxygen Delivery Method Room Air Intake Visit Reasons: EP Cough, flu symtoms Intake Note: Patient here for cough, wheezing, headache, congestion which started about 1 week ago now. Patient Tobacco Use Status: Former Tobacco user Allergies No Known Allergies Allergy (Verified 10/22/24 09:20) Do you need a note to return to daycare/school/sports/work: No HPI HPI Comments History of Present Illness Details History - The patient is a 44-year-old male pres enting with a persistent cough. - Symptoms originated four to five days ago with a high fever, chills, nausea, and vomiting. - After initial symptoms improved, a sev ere and prolonged cough developed, exacerbating at night and causing sleep interference. - Despite attempts to manage the symptom s with Tylenol and a hypertensive- suitable liquid medicine, relief was not achieved. - The patient denies any smoking or asth ma history but reports shortness of breath. - Past history includes essential hypert ension without any other relevant chronic illnesses noted. Physical Exam General: Cooperative, healthy appearing, comfortable and no acute distress Orientation/consciousness: Patient oriented x3 Limitations: No limitations Head: Normal to inspection Ears: Hearing grossly normal bilaterally, external ears normal and TM's normal bilaterally Nose: Normal external nose present, Normal nares present and No nasal discharge present Face and sinus: Normal facial exam and Yes sinuses nontender Mouth: Normal oral and palatal mucosa present and moist mucous membranes Throat: Yes tonsils normal, Yes uvula midline. Posterior oropharynx erythema Eyes: Appearance normal, both eyes and all related structures Neck: Normal visual inspection Respiratory: dim/tight to auscultation bilaterally,no wheeze. Normal respiratory effort, able to speak in complete sentences, Actively coughing, no respiratory distress, not tachypneic, no tripod positioning and no use of accessory muscles. Cardiovascular: Regular rate and rhythm. Normal S1 and S2 Skin: No rashes or lesions noted Neuro: Patient oriented x3 Extremities: Normal to inspection and Yes no clubbing, cyanosis or edema [facility] Medical History (Updated 10/22/24 @ 09:52 by Monae Blake PA-C) Hypertension Surgical History No pertinent past surgical history Family History Father Hypertension Mother Hypertension Diabetes Cirrhosis Social History Housing: Apartment Alcohol intake: current Alcohol intake frequency: does not drink Patient Tobacco Use Status: Former Tobacco user e-Cigarette/Vaping Use: Never Used service: No Current occupational status: employed Cognitive needs: No Hearing needs: No Vision needs: Yes Review of Systems Const All systems reviewed & are unremarkable except as noted in HPI and below Physical Exam Vital Signs: Last Vital Signs Temp 98.2 F 10/22/24 09:19 Pulse 84 10/22/24 09:19 BP 116/80 10/22/24 09:19 Pulse Ox 98 10/22/24 09:19 Oxygen Delivery Method Room Air 10/22/24 09:19 BMI result Body Mass Index 32.6 Office Procedures Nebulizer Treatment Nebulizer Treatment 46947-Bbybbyofv/MDI RX initial, or Nebulizer Subsequent Treatment Office Meds ipratropium 0.5 mg-albuterol 3 mg (2.5 mg base)/3 mL nebulization soln Performing Provider: Monae Blake PA-C Performing Location: [facility] Administered by: Monae Blake PA-C on 10/22/24 09:58 Dose Route Admin Location Dispensed Lot Number Expiration Date [facility] Blow Mold Operator 3 mL inhalation 3 mL [id number] 11/01/27 Assessment & Plan Assessment & Plan (1) URI, acute: Code(s): J06.9 - Acute upper respiratory infection, unspecified Plan: The plan includes a suspected diagnosis of bronchospasm as the root cause of the patient's persistent cough and respiratory discomfort. A nebulizer treatment is intended to alleviate airway constriction and provide symptomatic relief. Tessalon Perles is prescribed as a cough suppressant to improve nighttime rest. The patient was informed of potential side effects of the nebulizer treatment, including possible transient tachycardia. The medications are to be dispensed through [employer]. Diagnostic testing for influenza, COVID-19, and RSV was performed to rule out common viral infections. Patient was informed and verbally consented to the use of an ambient scribe for clinic note documentation during this visit Orders: Orders SARS-CoV2/FLU/RSV Today R09.89 - Other specified symptoms and signs involving the circulatory and respiratory systems AMB Nebulizer Treatment Today J06.9 - Acute upper respiratory infection, unspecified Medications: New benzonatate 200 mg PO TID PRN 14 caps 0RF cough albuterol sulfate 90 mcg/actuation 2 puffs inhalation Q6H PRN 8.5 grams 0RF shortness of breath or wheezing or cough Coding Level of Care Code Est Pt Level 4 (32549) Diagnoses URI, acute J06.9 CPT Codes Nebulizer Treatment - Nebulizer Treatment, initial or subsequent: 55582- Nebulizer/MDI RX initial, or Nebulizer Subsequent Treatment ([id number])
[2024-10-22 09:19] VITALS: BP 116/80; PULSE 84; TEMP 36.8; O2SAT 98; BMI 32.6
--- OUTSIDE RECORDS SUMMARY | 2024-10-22 09:40 | XMS_ITS | Clinical Summary ---
Author Organization [facility] ity Address [address] [place] [address] Care Team Providers Care Recreation Facilities Supervisor Name Role Phone Unavailable Primary Care Provider Unavailabl e Social History Tobacco Use Types Packs/Day Years Used Date Smoking Tobacco: Never Assessed Sex and Gender Information Value Date Recorded Sex Assigned at Not on file Legal Sex Male 3:10 PM EST Gender Identity Not on file Sexual Orientation Not on file Plan of Treatment Health Maintenance Due Date Last Done Comments DTaP,Tdap,and Td Vaccines (1 - Tdap) 1999 Hepatitis B Vaccines (1 of 3 - 19+ 3-dose series) 1999 COVID-19 Vaccine (2023-2 5 season) 2024 Influenza Vaccine (#1) 2024 HIB Vaccines Aged Out No longer eligi ble based on patient's age to complete this topic HPV Vaccines Aged Out No longer eligi ble based on patient's age to complete this topic Hepatitis A Vaccines Aged Out No long er eligible based on patient's age to complete this topic IPV Vaccines Aged Out No longer eligi ble based on patient's age to complete this topic MMR Vaccines Aged Out No longer eligi ble based on patient's age to complete this topic Meningococcal ACWY Vaccine Aged Out N o longer eligible based on patient's age to complete this topic Meningococcal B Vacine Aged Out No lo nger eligible based on patient's age to complete this topic Pneumococcal Vaccine: Pediat rics (0 to 5 Years) and At-Risk Patients (6 to 64 Years) Aged Out No longer eligible b ased on patient's age to complete this topic RSV Immunization Patients Un marifer 20 months Aged Out No longer eligible b ased on patient's age to complete this topic Varicella Vaccines Aged Out No longer eligible based on patient's age to complete this topic
== END 2024-10-22 10:15 | disposition home or self-care (01) ==
PROVIDERS: PCP Nurse Practitioner Family; Visit Provider Physician Assistant
DX: J06.9 Acute upper respiratory infection, unspecified (principal)

== ENCOUNTER 2024-10-22 09:05 | Outpatient (REF) | payer OTHER, SELFPAY ==
--- OUTSIDE RECORDS SUMMARY | 2024-10-22 10:32 | XMS_ITS | Clinical Summary ---
Author Organization [facility] ity Address [address] [place] [address] Care Team Providers Care Drum Plater Name Role Phone Unavailable Primary Care Provider [...]
[2024-10-22 14:09] LABS: Influenza A PCR POSITIVE (Negative); Influenza B PCR NEGATIVE (Negative); Resp Syncy Virus RNA Qual PCR NEGATIVE (Negative); SARS COV2 PCR INHOUSE NEGATIVE (Negative)
== END 2024-10-22 09:06 | disposition home or self-care (01) ==
LOC: HO.LAB 09:05
PROVIDERS: Physician Assistant; PCP Nurse Practitioner Family
DX: J06.9 Acute upper respiratory infection, unspecified (principal); R09.89 Other specified symptoms and signs involving the circulatory and respiratory systems
CPT/HCPCS: 0241U; 94640

== ENCOUNTER 2024-12-02 07:00 | Outpatient (REF) | payer OTHER, SELFPAY ==
[2024-12-02 10:13] LABS: Hematocrit 44.9 % (42.0-52.0)
[2024-12-02 10:57] LABS: Alanine Aminotransferase 37 U/L (0-40); Albumin Level 4.3 g/dL (3.5-5.0); Alkaline Phosphatase 73 U/L (39-117); Anion Gap 13 (12-20); Aspartate Amino Transferase 33 U/L (5-37); Bilirubin Total 0.3 mg/dL (0.0-1.0); Blood Urea Nitrogen 15 mg/dL (9-16); Calcium 9.5 mg/dL (8.4-10.2); Carbon Dioxide 26 mmol/L (22-29); Chloride 107 mmol/L (96-108); Cholesterol 252 mg/dL (<200); Estimated Glomerular Filt Rate > 60; Glucose Fasting 102 mg/dL (60-99); HDL Cholesterol 36 mg/dL (>40); LDL Cholesterol Calculated 146 mg/dL (<100); Potassium 4.2 mmol/L (3.3-5.1); Sodium 142 mmol/L (135-145); Total Protein 8.3 g/dL (6.5-8.0); Triglycerides 351 mg/dL (<150)
[2024-12-03 14:48] LABS: Prolactin 16.1 ng/mL (2.0-18.0)
[2024-12-13 08:54] LABS: Testosterone, Free 65.5 pg/mL (35.0-155.0); Testosterone, Total 380 ng/dL (250-1100)
== END 2024-12-02 07:01 | disposition home or self-care (01) ==
LOC: HO.HMGCLDS 07:00
PROVIDERS: Internal Medicine Endocrinology, Diabetes & Metabolism; PCP Nurse Practitioner Family; Referring Provider Urology; Visit Provider Nurse Practitioner Family
DX: R79.89 Other specified abnormal findings of blood chemistry (principal); E78.5 Hyperlipidemia, unspecified; Z79.890 Hormone replacement therapy
CPT/HCPCS: 36415; 80053; 80061; 84146; 84402; 84403; 85014

== ENCOUNTER 2024-12-04 14:14 | Outpatient (AMB) | payer OTHER, SELFPAY ==
--- NOTE | 2024-12-04 14:33 | MHC.PC.OV ---
Vital Signs 12/04/24 14:34 Height 5 ft 7 in Weight 209 lb BMI 32.7 BP 118/74 Blood Pressure Location Lt brachial Position Sitting Pulse 86 Pulse Source Pulse Oximeter Pulse Oximetry (%) 97 Oxygen Delivery Method Room Air Intake Visit Reasons: yasmany Parker Mill Supervisor Required: No Accompanied by: Self / Same As Patient Allergies No Known Allergies Allergy (Verified 12/04/24 15:08) Medication List - Last Reconciled 12/04/24 by KEEGAN GordonP- albuterol sulfate 90 mcg/actuation 2 puffs inhalation Q6H PRN atorvastatin 20 mg PO BEDTIME 90 days lisinopril 20 mg PO DAILY Tobacco use date assessed: 12/04/24 Dental Screening Dental Screen Date: 12/04/24 Did you have a dental visit in the last 12 months?: Yes Did you have a dental problem in the last 6 months where you did not have access to dental care?: No Was dental information given to patient?: Patient has dentist HPI yasmany Parker HPI Details History of Present Illness The patient is a 44-year-old male presenting with stress-induced chest discomfort. He reports intermittent discomfort localized to the left upper chest over the past few weeks with no radiation of pain. This discomfort appears to be triggered by stress and is associated with feelings of anxiety. He is being evaluated for elevated prolactin and low testosterone, which are possibly contributing to his very low libido. sees [facility] Maintenance Social History Review of Systems - General: Reports anxiety - Cardiovascular: Reports stress-induced chest discomfort localized to the left upper chest - Endocrine: Reports decreased libido - Psychological: Denies any other psychological symptoms aside from anxiety Physical Exam General: Cooperative, healthy appearing, comfortable, no acute distress and well developed Orientation: Patient oriented x3 Limitations: No limitations Head: Normal to inspection Ears: Hearing grossly normal bilaterally Nose: Normal external nose present Face and sinus: Normal facial exam Eyes: Appearance normal, both eyes and all related structures Neck: Normal visual inspection and Yes full ROM Respiratory: Normal respiratory effort and able to speak in complete sentences. Clear to auscultation bilaterally Cardiovascular: Regular rate and rhythm. Normal S1 and S2 GI: Normal to inspection. Soft to palpation and nontender Skin: No rashes or lesions noted Neuro: Patient oriented x3 Extremities: Normal to inspection Results - Tests: EKG planned for today denies any sob, n/v, fevers, chills, constipation, diarrhea, blood in stool, urinary issues. Plan Today's visit focused on assessing the stress-induced chest discomfort. An EKG is to be conducted to evaluate potential cardiac concerns. The patient's anxiety may contribute to his symptoms, but intervention plans for anxiety were not discussed. His ongoing evaluation for elevated prolactin and low testosterone by another provider could relate to his lack of libido. No treatments for these endocrine issues were initiated during this visit. Discussion Notes I discussed with the patient the need for an immediate EKG to assess his cardiac health given the recent development of stress-induced chest discomfort. We briefly mentioned that managing stress and anxiety might alleviate his symptoms, though specific plans for management of these issues were not established during the visit. We also acknowledged the ongoing treatment and assessment conducted by Talisha for his elevated prolactin and low testosterone levels and how addressing these might impact his libido. Patient Instructions - Undergo the EKG as planned today - Follow up with care provider Talisha regarding the elevated prolactin and low testosterone levels - Monitor the chest discomfort and report any changes or worsening of symptoms - Consider stress-reduction techniques such as deep breathing or meditation unless otherwise directed by your healthcare provider [facility] Medical History Hypertension Surgical History No pertinent past surgical history Family History Father Hypertension Mother Hypertension Diabetes Cirrhosis Social History Housing: Apartment Alcohol intake: current Alcohol intake frequency: does not drink Patient Tobacco Use Status: Former Tobacco user e-Cigarette/Vaping Use: Never Used service: No Current occupational status: employed Cognitive needs: No Hearing needs: No Vision needs: Yes Questionnaire PHQ-9 Over the last 2 weeks, how often have you been bothered by any of the following problems? 1. Little interest or pleasure in doing things: several days 2. Feeling down, depressed, or hopeless: several days 3. Trouble falling or staying asleep, or sleeping too much: several days 4. Feeling tired or having little energy: more than half the days 5. Poor appetite or overeating: several days 6. Feeling bad about yourself - or that you are a failure or have let yourself or your family down: not at all 7. Trouble concentrating on things, such as reading the newspaper or watching television: several days 8. Moving or speaking so slowly that other people could have noticed. Or the opposite - being so fidgety or restless that you have been moving around a lot more than usual: several days 9. Thoughts that you would be better off or of hurting yourself in some way: not at all Total score: 8 Depression Screening Interpretation: Positive (denies any si or HI, declined therapist currently) Depression Screening Follow-up: Existing condition Depression Screening Done: Yes 16418 - PHQ-9 Billing: Yes Source: Developed by Drs. Alex Thacker, Tammy Heath, Scott Peng and colleagues, with an educational trenton from [employer]. Thrive Questionnaire Date Thrive assessed: 12/04/24 I am a: Patient What is your living situation today?: I have a steady place to live Within the past 12 months, did the food you bought not last and you didn't have the money to get more?: Never true Within the past 12 months, did you worry whether your food would run out before you got money to buy more?: Sometimes True Do you have trouble paying for medicines?: No Do you have trouble getting transportation to medical appointments?: No Do you have trouble paying your heating and electricity bill?: No Do you have trouble taking care of your child, family member or friend?: No Do you have trouble with day-to-day activities such as bathing, preparing meals, shopping, managing finances, etc.?: No Are you currently unemployed and looking for a job?: No Are you interested in more education?: No Please select the resources that you would like help with: None Currently or been in a relationship where the following occur: No concerns reported THRIVE Score: 1 AUDIT C Alcohol Use Questionnaire (AUDIT-C) 1. How often do you have a drink containing alcohol?: Never 3. How often do you have six or more drinks on one occasion?: Never Total Score: 0 Score Reviewed/Action Taken: Yes YUVAL-7 AMB Questionnaire YUVAL-7 Date YUVAL - 7 assessed: 12/04/24 Feeling nervous, anxious, or on edge: 1 = Several days Not being able to stop or control worryin = Not at all Worrying too much about different things: 0 = Not at all Trouble relaxin = Several days Being so restless that it is hard to sit still: 1 = Several days Becoming easily annoyed or irritable: 1 = Several days Feeling afraid as if something awful might happen: 0 = Not at all Total YUVAL-7 score (0-4 normal; 5-9 mild; 10-14 moderate; 15-21 severe): 4 Source: Developed by Drs. Alex Thacker, Tammy Heath, Scott Peng and colleagues, with an educational trenton from [employer]. YUVAL-7 Assessment Billing YUVAL-7 Assessment Tool: YUVAL-7 Assessment 53872 Physical exam (Primary Care) Vital Signs: Last Vital Signs Pulse 86 12/04/24 14:34 BP 118/74 12/04/24 14:34 Pulse Ox 97 12/04/24 14:34 Oxygen Delivery Method Room Air 12/04/24 14:34 BMI result Body Mass Index 32.7 Tobacco/Smoking Status: Tobacco use Status Tobacco use date assessed 12/04/24 12/04/24 14:35 Patient Tobacco Use Status Former Tobacco user 12/04/24 14:35 e-Cigarette/Vaping Use Never Used 12/04/24 14:35 PHQ-9: PHQ-9 Score PHQ-9: Total score 8 12/04/24 14:35 Depression Screening Interpretation: Positive (denies any si or HI, declined therapist currently) Depression Screening Follow-up: Existing condition Thrive Assessment: Date of Thrive Assessment Date Thrive assessed 12/04/24 12/04/24 14:35 Currently or been in a relationship where the following occur: No concerns reported Coding Level of Care Code Est Pt Prev Care 40-64y(69123) Diagnoses Physical exam Z00.00 Dyslipidemia E78.5 Additional Codes YUVAL-7 Assessment Billing - YUVAL-7 Assessment Tool: YUVAL-7 Assessment 33557 ([id number]) PHQ-9 - 12816 - PHQ-9 Billing: Yes ([id number]) Assessment & Plan Assessment & Plan (1) Physical exam: Code(s): Z00.00 - Encounter for general adult medical examination without abnormal findings Category: Medical (2) Dyslipidemia: Code(s): E78.5 - Hyperlipidemia, unspecified Category: Medical Plan . Orders: Orders Complete Blood Count Auto Diff 2 Months E78.5 - Hyperlipidemia, unspecified, Z00.00 - Encounter for general adult medical examination without abnormal findings UA CC w/rflx Micro + Cult 2 Months E78.5 - Hyperlipidemia, unspecified, Z00.00 - Encounter for general adult medical examination without abnormal findings Comprehensive [place]. Panel Fast 2 Months E78.5 - Hyperlipidemia, unspecified, Z00.00 - Encounter for general adult medical examination without abnormal findings TSH reflex Free T4 2 Months E78.5 - Hyperlipidemia, unspecified, Z00.00 - Encounter for general adult medical examination without abnormal findings Lipid Panel 2 Months E78.5 - Hyperlipidemia, unspecified, Z00.00 - Encounter for general adult medical examination without abnormal findings Medications: Refilled atorvastatin 20 mg PO BEDTIME 90 days 90 tabs 1RF
[2024-12-04 14:34] VITALS: BP 118/74; PULSE 86; O2SAT 97; BMI 32.7
--- OUTSIDE RECORDS SUMMARY | 2024-12-04 17:02 | XMS_ITS | Clinical Summary ---
Author Organization [facility] ity Address [address] [place] [address] Care Team Providers Care Technical Education Teacher Name Role Phone Unavailable Primary Care Provider [...]
== END 2024-12-04 15:21 | disposition home or self-care (01) ==
LOC: HO.HMCC 14:15
PROVIDERS: PCP Nurse Practitioner Family; Visit Provider Nurse Practitioner Family
DX: Z00.00 Encounter for general adult medical examination without abnormal findings (principal); E78.5 Hyperlipidemia, unspecified

== ENCOUNTER → 2024-12-04 14:14 | Outpatient (BNVA) | payer OTHER, SELFPAY | PROVIDERS: PCP Nurse Practitioner Family; Visit Provider Nurse Practitioner Family | DX: Z00.00 Encounter for general adult medical examination without abnormal findings (principal); E78.5 Hyperlipidemia, unspecified | CPT/HCPCS: 96127 ==

== ENCOUNTER 2024-12-31 08:21 | Outpatient (AMB) | payer OTHER, SELFPAY ==
--- NOTE | 2024-12-31 08:23 | A.OFFVIS_ITS ---
Vital Signs 12/31/24 08:24 Height 5 ft 7 in Weight 199 lb 1.239 oz BMI 31.2 BP 132/92 H Blood Pressure Location Lt brachial Position Sitting Pulse 97 Pulse Source Pulse Oximeter Pulse Oximetry (%) 97 Oxygen Delivery Method Room Air Intake Visit Reasons: Hypogonadism Intake Note: Patient present today for Hypogonadism follow up. Locomotive Electrician Required: No Accompanied by: Self / Same As Patient Allergies No Known Allergies Allergy (Verified 12/31/24 08:25) Medication List - Last Reconciled 12/31/24 by Alex Gilliland MD albuterol sulfate 90 mcg/actuation 2 puffs inhalation Q6H PRN atorvastatin 20 mg PO BEDTIME 90 days lisinopril 20 mg PO DAILY HPI Comments Details: 44 YO Male who is seen in consultation at the request of urologist for Hypogonadism. First diagnosed with Hypogonadism 5 mos ago Was started on Testosterone supplementation with 5 mos ago Currently using IM testosterone 160 mg Qwkly . Last dose was []. Currently not achieving spontaneous am erections, and unable to achieve erection when desired. Reports low libido worse with testosterone . Decreased facial hair and shaving frequency. Denies any change in size or shape of testicles. Denies penile discharge or scrotal tenderness. Denies any history of mumps orchitis. Had head trauma concusions in high school . Denies history of JARED with negative sleep study . with children and has daughter at age 18 who were conceived spontaneously. Sense of smell intact. Has headache but visual changes, -gynecomastia - galactorrhea. Denies orthostatic symptoms, weight loss. Denies change in size of hands or feet. Denies hair loss, +weight gain, +cold intolerance. History of DVT or PE: No No use of biotin, anabolic steroids . No use of opoids or methadone Labs: Repeat testosterone levels have been normal PSA CBC - Labs: Testosterone level on 12/02/24 was 380. - Labs: Prolactin level repeated and returned normal at 16.1. - Labs: FSH and LH levels were normal on previous assessments. The patient is a 44-year-old male presenting with reduced libido and erectile dysfunction. The loss of libido has persisted through different relationships and is described as a decrease in sexual desire, not a mechanical or physical dysfunction. The patient has previously tried testosterone therapy without improvement and has maintained testosterone levels within normal limits. Therefore, testosterone deficiency is not deemed the primary cause. Sexual function initiates normally but is not sustained, impacting engagement and interest in sexual activity over time. Despite having normal hormonal profiles, including testosterone, LH, FSH, and prolactin, the patient's libido issues continue. He has a history of ineffective treatment with PDE-5 inhibitors like Cialis. There's been no history of direct penile treatments, consultation with a sex therapist, or underlying vascular assessments, though these avenues were discussed during the visit. [facility] Medical History Hypertension Surgical History No pertinent past surgical history Family History Father Hypertension Mother Hypertension Diabetes Cirrhosis Social History Housing: Apartment Alcohol intake: current Alcohol intake frequency: does not drink Patient Tobacco Use Status: Former Tobacco user e-Cigarette/Vaping Use: Never Used service: No Current occupational status: employed Cognitive needs: No Hearing needs: No Vision needs: Yes Physical Exam Vital Signs: BMI result Body Mass Index 31.2 Assessment & Plan Assessment & Plan (1) Low testosterone: Code(s): R79.89 - Other specified abnormal findings of blood chemistry Category: Medical Plan: This is a 44-year-old male with a reported history of hypogonadism followed by Urology currently on intramuscular testosterone 160 mg Q monthly. There was no documented let was a low testosterone off testosterone. G onadotropins are low normal and prolactin was found to be elevated. Repeat prolactin and testosterone were normal 1. Reduced Libido Consider psychological counseling or therapy due to the chronic nature of reduced sexual desire and lack of response to traditional hormonal treatments. Hormonal levels have been stable, but continued observation is advised. 2. Erectile Dysfunction Refer the patient for follow up with a urologist for further intervention as oral medications have yielded minimal benefit. It's suggested to explore alternative therapeutic options, such as penile injections or mechanical devices. I discussed the patient's symptoms of reduced libido and erectile dysfunction, including potential underlying causes and next steps for management. I explained the risks and benefits of further urological evaluation and the potential for invasive therapies, including direct penile treatments, which could address vascular or mechanical issues. We also discussed psychological factors potentially affecting libido and the utility of counseling. Continued management of hypertension and hyperlipidemia will proceed with current medications, lisinopril and atorvastatin, respectively. The patient was informed about the necessity of follow-up appointments to reevaluate hormonal and physical health conditions. The patient had an opportunity to ask questions regarding treatment plan. The patient expressed understanding and agreement with the above treatment plan. Patient was informed and verbally consented to the use of an ambient scribe for clinic note documentation during this visit. (2) Prolactin increased: Code(s): R79.89 - Other specified abnormal findings of blood chemistry Category: Medical Plan: Repeat prolactin normal Coding Level of Care Code Est Pt Level 3 (11853) Diagnoses Low testosterone R79.89 Prolactin increased R79.89
[2024-12-31 08:24] VITALS: BP 132/92; PULSE 97; O2SAT 97; BMI 31.2
--- OUTSIDE RECORDS SUMMARY | 2024-12-31 08:37 | XMS_ITS | Clinical Summary ---
Author Organization [facility] ity Address [address] [place] [address] Care Team Providers Care Chemical Operations And Training Name Role Phone Unavailable Primary Care Provider [...] Vaccine (2023-2 5 season) 2024 Influenza Vaccine (Season Ended) 2025 HIB Vaccines Aged Out No longer eligi [...] age to complete this topic Meningococcal B Vaccine Aged Out No l onger eligible based on patient's age to complete [...]
== END 2024-12-31 09:00 | disposition home or self-care (01) ==
LOC: HO.ENCR 08:22
PROVIDERS: PCP Nurse Practitioner Family; Visit Provider Internal Medicine Endocrinology, Diabetes & Metabolism
DX: R79.89 Other specified abnormal findings of blood chemistry (principal)
CPT/HCPCS: 99213

== ENCOUNTER → 2024-12-31 08:21 | Outpatient (BNVA) | payer OTHER, SELFPAY | PROVIDERS: PCP Nurse Practitioner Family; Visit Provider Internal Medicine Endocrinology, Diabetes & Metabolism ==

== ENCOUNTER 2025-03-18 06:40 | Outpatient (AMB) | payer OTHER, SELFPAY ==
--- OUTSIDE RECORDS SUMMARY | 2025-03-18 06:43 | XMS_ITS | Clinical Summary ---
Author Organization [facility] ity Address [address] [place] [address] Care Team Providers Care Property Manager Name Role Phone Unavailable Primary Care Provider [...] (2023-2 5 season) 2024 Influenza Vaccine (#1) 2025 HIB Vaccines Aged Out No longer [...] 5 Years) and At-Risk Patients (6 to 49 Years) Aged Out No longer eligible b ased on patient's age to complete this topic RSV Immunization Patients Un marifer 20 months Aged Out No longer eligible b ased on patient's age to complete this topic Varicella Vaccines Aged Out No longer eligible based on patient's age to complete this topic
--- NOTE | 2025-03-18 08:03 | MHC.PC.OV ---
Intake Visit Reasons: referral change request Allergies No Known Allergies Allergy (Verified 12/31/24 08:25) Medication List - Last Reconciled 03/18/25 by KIM Gordon albuterol sulfate 90 mcg/actuation 2 puffs inhalation Q6H PRN atorvastatin 20 mg PO BEDTIME 90 days lisinopril 20 mg PO DAILY Tobacco use date assessed: 12/04/24 Dental Screening Dental Screen Date: 12/04/24 HPI referral change request HPI Details History of Present Illness The patient is a 44-year-old male presenting for a follow-up visit primarily to discuss testosterone levels and erectile dysfunction. The patient reports ongoing erectile dysfunction, which he attributes in part to significant stress from family and work responsibilities. He has previously consulted with a urologist and an tutorial laboratory supervisor, who suggested a possible pituitary issue and recommended further evaluation by [facility]. The patient missed his initial appointment with the urologist due to a family emergency involving a car accident with his . He plans to reschedule this appointment. The patient has tried medications such as sildenafil, which provided some relief but were not fully effective. He denies any suicidal or homicidal ideation. Review of Systems - Cardiovascular: Denies chest pain. - Respiratory: Denies shortness of breath. - Neurological: Denies dizziness. Plan The patient is advised to follow up with [facility] for further evaluation of his erectile dysfunction and potential pituitary disorder. He is encouraged to manage stress through lifestyle modifications, as stress may be contributing to his symptoms. The patient should continue to monitor his symptoms and report any changes or worsening of his condition. Discussion Notes I discussed with the patient the importance of following up with the urologist to address his erectile dysfunction and potential pituitary disorder. We talked about the role of stress in exacerbating his symptoms and the potential benefits of stress management techniques. Patient Instructions - Follow up with [facility] as soon as possible. - Try to manage stress through relaxation techniques or exercise. - Monitor symptoms and report any changes. [facility] Medical History Hypertension Surgical History No pertinent past surgical history Family History Father Hypertension Mother Hypertension Diabetes Cirrhosis Social History Housing: Apartment Alcohol intake: current Alcohol intake frequency: does not drink Patient Tobacco Use Status: Former Tobacco user e-Cigarette/Vaping Use: Never Used service: No Current occupational status: employed Cognitive needs: No Hearing needs: No Vision needs: Yes Questionnaire Thrive Questionnaire Date Thrive assessed: 12/03/24 I am a: Patient What is your living situation today?: I have a steady place to live Within the past 12 months, did the food you bought not last and you didn't have the money to get more?: Never true Within the past 12 months, did you worry whether your food would run out before you got money to buy more?: Sometimes True Do you have trouble paying for medicines?: No Do you have trouble getting transportation to medical appointments?: No Do you have trouble paying your heating and electricity bill?: No Do you have trouble taking care of your child, family member or friend?: No Do you have trouble with day-to-day activities such as bathing, preparing meals, shopping, managing finances, etc.?: No Are you currently unemployed and looking for a job?: No Are you interested in more education?: No Please select the resources that you would like help with: None Currently or been in a relationship where the following occur: No concerns reported THRIVE Score: 1 YUVAL-7 AMB Questionnaire YUVAL-7 Date YUVAL - 7 assessed: 12/04/24 Source: Developed by Drs. Alex Thacker, Tammy Heath, Scott Peng and colleagues, with an educational trenton from [employer]. Physical exam (Primary Care) Tobacco/Smoking Status: Tobacco use Status Tobacco use date assessed 12/04/24 12/04/24 14:35 Patient Tobacco Use Status Former Tobacco user 12/04/24 14:35 e-Cigarette/Vaping Use Never Used 12/04/24 14:35 Thrive Assessment: Date of Thrive Assessment Date Thrive assessed 12/03/24 12/24/24 12:21 Currently or been in a relationship where the following occur: No concerns reported Telehealth Telehealth Telehealth Platform: [facility] Location of provider rendering services: practice address Location of patient: address on file Patient Identification confirmed using: Name, : Yes Telehealth method: video Patient verbally consented to treatment: Yes Patient verbally consented to billing insurance company: Yes Patient informed of any privacy concerns related to visit: Yes Minutes spent on Phone/Video with Pt.: 12 Coding Level of Care Code Tele Est Pt Level 3 (00452) Diagnoses Low testosterone R79.89 Prolactin increased R79.89 Assessment & Plan Assessment & Plan (1) Low testosterone: Code(s): R79.89 - Other specified abnormal findings of blood chemistry Category: Medical (2) Prolactin increased: Code(s): R79.89 - Other specified abnormal findings of blood chemistry Category: Medical Plan .
== END 2025-03-18 11:45 | disposition home or self-care (01) ==
LOC: HO.HMCC 06:40
PROVIDERS: PCP Nurse Practitioner Family; Visit Provider Nurse Practitioner Family
DX: R79.89 Other specified abnormal findings of blood chemistry (principal)